=== PATIENT | female | born 1990 | race Caucasian/White ===

== ENCOUNTER → 2016-07-04 | Outpatient (CLI) | payer BC ==
[~2016-07-04] MED LIST: AMOXICILLIN 50500 MG PO; CLARITIN 10MG T10 MG PO; YAZ 28 3 MG-0.01 TAB PO
[2016-07-04 08:01] LABS: HEMOGLOBIN 13.8 g/dL (12.2-16.2); LYMPH # 3.8 K/mm3 (0.7-4.5); LYMPH % 43.4 % (10-50.0)
[2016-07-04 09:19] LABS: ABO BLOOD TYPE O; RH BLOOD TYPE POSITIVE
[2016-07-04 11:05] LABS: BUN 7 mg/dL (7-18); FREE THYROXIN INDEX 9.4 ug/dl (5.93-13.13)
[2016-07-04 11:06] LABS: GFR (ESTIMATED) 101 ML/MIN (59-)
== END ==
LOC: LAB 07:23
PROVIDERS: Nurse Practitioner Obstetrics & Gynecology
DX: Z01.419 Encounter for gynecological examination (general) (routine) without abnormal findings (principal)

== ENCOUNTER → 2016-07-21 | Outpatient (CLI) | payer BC ==
--- NOTE | 2016-07-21 16:06 | RADIOLOGY REPORT PS360 ---
US THYROID HISTORY: ENLARGED THYROID ORDERING PHYSICIAN: Kely Mobley APRN PATIENT AGE: 25 years COMPARISON: None FINDINGS: Right lobe: 4.2 x 1.4 x 1.6 cm. No discrete nodule. Homogeneous echogenicity Left lobe: 4.0 x 1.3 x 1.8 cm. No discrete nodule. Homogeneous echogenicity Isthmus: There is a 5 x 2 mm hypoechoic nodule involving the central aspect of the isthmus. IMPRESSION: 1. Thyroid size upper limits of normal. 2. 5 mm hypoechoic nodule in the isthmus. Recommend 6 month follow-up to confirm stability
== END ==
LOC: RAD 12:45
DX: E01.0 Iodine-deficiency related diffuse (endemic) goiter (principal)

== ENCOUNTER 2016-11-10 07:13 | Day surgery (SDC) | payer BC ==
[~2016-11-10] VITALS: Ht 157.5 cm; Wt 83.9 kg
[~2016-11-10 07:13] MED LIST changes: +LEVOTHYROXINE0.05 M2 PO; +OCELLA 3 MG-0.01 TAB PO; +PEPCID40 MG PO
--- NOTE | 2016-11-10 10:55 | Operative Note ---
Procedure/Operative Record Procedure Date of procedure: 11/10/16 Pre-Op Dx: LEFT ovarian dermoid cyst Post-Op Dx: LEFT ovarian dermoid cyst Procedure performed: Laparoscopic LEFT ovarian cystectomy Surgeon: Dr. Cleveland Gurrola Supervisor Assembly(s): None Anesthesia: Emery Mc EBL (ml): 25 Clinical note: She is a 25 or 0 para 0 young lady who had some LEFT lower quadrant pain. An ultrasound showed that she had a 5 cm LEFT dermoid cyst. As result of that she was offered LEFT ovarian cystectomy. She was also seen by Dr. Hebert we' ll perform a concurrent laparoscopic cholecystectomy. Operative findings: She had a 5 cm LEFT ovarian dermoid cyst that was well circumscribed. It was filled with sebaceous fluid as well as hair. Operative note: She was taken the operative room where general anesthesia was found adequate. She was prepped and draped in normal sterile fashion in the semi-lithotomy position. A weighted speculum was placed in vagina and the anterior lip of the cervix was grasped with a tenaculum. I dilated the cervix to approximate 4 mm and placed a Karlie uterine manipulator within the uterine cavity. The balloon was insufflated. I changed gloves and injected approximately 10 mL of 0.5 percent ropivacaine around the umbilicus. I made a small incision within the umbilicus and inserted a Veress needle into the abdominal cavity. The abdominal cavity was then insufflated to a pressure of 20 mmHg with carbon dioxide gas. Then injected through and through the pubic hairline, made a small incision here and inserted a 5 mm trocar under direct vision. In the LEFT lower quadrant I identified the inferior epigastric arteries, went lateral to these and injected through and through. I made a small incision and inserted another 5 mm trocar under direct vision. I then grasped the LEFT ovary and lifted up on its pedicle. Using harmonic scalpel I cauterized along the upper aspect of the ovary. Then using Metzenbaum scissors I made an approximately 3 cm incision along the ovarian tissue. I was able to grasp the edge of the ovarian tissue and using a [place] grasper I was able to dissected the cyst wall off the ovarian tissue. I was able to completely remove the cyst this way. While doing this it did have a small rupture and I did leak some sebaceous fluid. After freeing up the ovary I then placed a 5 mm camera through the suprapubic port. I placed an Endo Catch bag through the 11 mm trocar site and placed the ovary in the bag. It was removed through the 11 mm trocar site. I then switched back to 11 mm camera and once again assuring hemostasis of the LEFT ovary. The pelvis was rinsed well with copious saline to remove all of the sebaceous fluid. I then wrapped the LEFT ovary and a piece of Interceed. The secondary trochars were then removed under direct vision. The sites were hemostatic. The skin incisions at the 500 trocar sites were closed with subcuticular 4-0 Monocryl suture. Sterile dressings were applied. I then LEFT the procedure to be finished by Dr. Hebert. The patient tolerated procedure well and was in excellent condition when I finished my procedure. Her estimated blood loss during my procedure was approximately 25 mL. The rest of her operative course will be dictated by Dr. Pelaez. Conplications: None Specimens: LEFT ovarian dermoid cyst. at [id number]
--- NOTE | 2016-11-10 11:30 | Operative Note ---
Surgeon/Diagnoses Surgeon/Community Cultural Development Officer(s) Date of procedure: 11/10/16 Surgeon: MD Ranjan James Community Cultural Development Officer(s): Laura Ashton Diagnoses Pre-op diagnosis: Chronic calculus cholecystitis Post-op diagnosis Same Procedure Procedure Procedure: Laparoscopic cholecystectomy Indications: LILA LLANES is a 25 year-old Female with a history of upper abdominal pain, nausea, and radiographic evidence of chronic calculus cholecystitis Findings: Mild thickening of pericholecystic tissue Procedure Description: Please note that the patient was evaluated by ObGyn for adnexal mass and was scheduled to undergo laparoscopic excision by Dr. Gurrola. She also had evidence of chronic calculus cholecystitis and the decision was made to proceed with both procedures sequentially. Please see Dr. Oliver's operative report for detail with regard to excision of her LEFT adnexal lesion. As stated above the patient was already under anesthesia and had undergone laparoscopic excision of her LEFT adnexal mass. Two additional 5 mm trocars were placed in the RIGHT upper quadrant and a 5 mm trocar was placed in the subxiphoid position. The gallbladder was elevated up and over the liver margin. The tissue around the cystic duct was carefully dissected. Clips were placed proximally and the duct was transected at the infundibulum utilizing harmonic harris. Harmonic harris were then utilized to remove the gallbladder from the liver margin. The gallbladder was placed in a retrieval bag and removed through the subxiphoid trocar site. The RIGHT upper quadrant was thoroughly irrigated. No active bleeding or bile leak was noted. The fascia at the infraumbilical trocar site was reapproximated utilizing the yandel-close device. Pneumoperitoneum was released as the remaining trocars were removed. All wounds were irrigated and skin was closed with 4-0 Monocryl in a subcuticular fashion. Steri-Strips were applied and the patient's anesthetic agents were reversed. After extubation , the patient was transferred to recovery in stable condition. EBL (ml): 25 ((15ml from prior)) Anesthesia: GETA Complications: No immediate Specimens: Gallbladder and contents Disposition Disposition: Stable to recovery from where she will be discharged home. She will follow-up in 1-2 weeks. at [id number]
--- NOTE | 2016-11-10 11:50 | Anesthesia Record ---
Anesthesia Record Part II Discharge time: 1212 Destination: Same day surgery PACU nurse assessment review? Yes Patient is: Awake, Stable Anesthesia complications? No at 1150
--- NOTE | 2016-11-10 11:50 | Anesthesia Record ---
Anesthesia Record Part I Total IV fluids: 1200 EBL (ml): 50 Urine Output: 25 B/P: 137/71 % SaO2: 95 Pulse: 83 Resps: 10 Temp: 97.8 Patient is: Awake, Stable Stable to PACU at: 1142 at 1143
[2016-11-10 15:34] VITALS: BP 123/68
== END 2016-11-10 15:00 | disposition home or self-care (01) ==
LOC: SDC 07:13
PROVIDERS: Nurse Practitioner Obstetrics & Gynecology
PROC: 0FT44ZZ Resection of Gallbladder, Percutaneous Endoscopic Approach (ICD-10-PCS; principal; 2016-11-10 08:45)
DX: K80.10 Calculus of gallbladder with chronic cholecystitis without obstruction (principal)